=== PATIENT | female | born 1995 | race Caucasian/White ===

== ENCOUNTER 2019-02-04 15:22 | Emergency (ER) | payer OTHER ==
[2019-02-04 16:14] VITALS: BP 104/72
--- NOTE | 2019-02-04 16:27 | UC ---
Respiratory Complaint HPI - HPI Summary HPI Summary: 24 year old female presents with complaint of persistent cough. States sx started ~1 month ago, worsened over the past week with a harsh dry cough, sinus pressure and congestion. Denies fevers, nausea nor vomiting. Has been using otc cold medication without relief. - History of Current Complaint Chief Complaint: UCRespiratory Stated Complaint: COUGH Time Seen by Provider: 02/04/19 16:26 Hx Obtained From: Patient Hx Last Menstrual Period: 01/19/19 Onset/Duration: Lasting Weeks Pain Intensity: 3 Character: Cough: Nonproductive Associated Signs And Symptoms: Positive: URI, Nasal Congestion, Hoarseness, Sinus Discomfort. Negative: Fever, Chills, Pleuritic Chest Pain, Wheezing - Allergies/Home Medications Allergies/Adverse Reactions: Allergies Allergy/AdvReac Type Severity Reaction Status Date / Time amoxicillin Allergy Altered Verified 02/04/19 16:06 Mental Status Home Medications: Home Medications Allergy Med 1 tab DAILY 02/04/19 [History Confirmed 02/04/19] Omeprazole 20 mg PO QAM 02/04/19 [History Confirmed 02/04/19] raNITIdine HCl [Ranitidine HCl] 1 cap QPM 02/04/19 [History Confirmed 02/04/19] PMH/Surg Hx/FS Hx/Imm Hx Previously Healthy: Yes - Surgical History Surgical History: Yes Surgery Procedure, Year, and Place: Orthoscopic bilat knee. Esophageal dilation w/ polyp removal - Family History Known Family History: Positive: Non-Contributory - Social History Alcohol Use: None Substance Use Type: None Smoking Status (MU): Former Smoker Have You Smoked in the Last Year: No Review of Systems All Other Systems Reviewed And Are Negative: Yes Constitutional: Positive: Negative Skin: Positive: Negative Eyes: Positive: Negative ENT: Positive: Sore Throat, Nasal Discharge, Sinus Congestion, Sinus Pain/ Tenderness Respiratory: Positive: Cough. Negative: Shortness Of Breath Cardiovascular: Positive: Negative Gastrointestinal: Positive: Negative Genitourinary: Positive: Negative - LMP 01/19/19, denies chance of . Motor: Positive: Negative Neurovascular: Positive: Negative Musculoskeletal: Positive: Negative Neurological: Positive: Negative Psychological: Positive: Negative Is Patient Immunocompromised?: No Physical Exam Triage Information Reviewed: Yes Appearance: Well-Appearing, No Pain Distress, Well-Nourished Vital Signs: Initial Vital Signs Temp 98.1 F 02/04/19 16:08 Pulse 53 02/04/19 16:08 Resp 16 02/04/19 16:08 BP 104/72 02/04/19 16:08 Pulse Ox 100 02/04/19 16:08 ENT: Positive: Pharyngeal erythema - petechii soft palate., Nasal congestion, Nasal drainage, TMs normal, Hoarse voice, Sinus tenderness, Uvula midline. Negative: Tonsillar swelling, Tonsillar exudate Neck: Positive: Supple, Nontender, No Lymphadenopathy Respiratory: Positive: Lungs clear, Normal breath sounds, No respiratory distress. Negative: Crackles, Rhonchi, Wheezing Cardiovascular: Positive: RRR, No Murmur Abdomen Description: Positive: Nontender, Soft Musculoskeletal Exam: Normal Neurological Exam: Normal Psychological Exam: Normal Skin Exam: Normal Respiratory Course/Dx - Differential Dx/Diagnosis Provider Diagnosis: Acute sinusitis Discharge ED - Sign-Out/Discharge Documenting (check all that apply): Patient Departure All imaging exams completed and their final reports reviewed: No Studies - Discharge Plan Condition: Stable Disposition: HOME Prescriptions: DOXYcycline CAP(*) [DOXYcycline 100MG CAP(*)] 100 mg PO BID 10 Days #20 cap Patient Education Materials: Sinusitis (ED) Referrals: No Primary Care Phys,NOPCP [Primary Care Provider] - Additional Instructions: Take all the antibiotics as prescribed. Recommend Mucinex DM over the counter for cough. If your symptoms persist or worsen, follow-up with your primary care physician. - Billing Disposition and Condition Condition: STABLE Disposition: Home
== END 2019-02-04 17:06 | disposition home or self-care (01) ==
LOC: UCCORT 15:22
DX: J01.90 Acute sinusitis, unspecified (principal); R05 Cough; Z87.891 Personal history of nicotine dependence; Z88.0 Allergy status to penicillin
CPT/HCPCS: 99202; G0463

== ENCOUNTER 2019-02-09 17:30 | Emergency (ER) | payer OTHER ==
[2019-02-09 18:00] VITALS: BP 116/71
--- NOTE | 2019-02-09 18:54 | UC ---
Throat Pain/Nasal Raymond HPI - HPI Summary HPI Summary: 24-year-old female comes in with chief complaint of sore throat. Patient's been on doxycycline for 5 days for sinusitis symptoms had been going on for more than 2 weeks. Today she noticed her throat was more sore than before. She had a headache before starting the doxycycline which has improved. Throats Exie feeling worse and she feels like it's swollen. She looked in the back of her throat and noticed ecchymosis at the base of the uvula. She still able swallow. No difficulty breathing. No recent fevers. Patient feels like her voice is different in the last 1 day than normal. - History of Current Complaint Chief Complaint: UCGeneralIllness Stated Complaint: SORE THROAT Time Seen by Provider: 02/09/19 18:11 Hx Last Menstrual Period: 01/18/19 Pain Intensity: 5 - Allergies/Home Medications Allergies/Adverse Reactions: Allergies Allergy/AdvReac Type Severity Reaction Status Date / Time amoxicillin Allergy Altered Verified 02/09/19 18:00 Mental Status Home Medications: Home Medications LevoCETirizine TAB (NF) [Xyzal TAB (NF)] 5 mg PO DAILY 02/09/19 [History Confirmed 02/09/19] PMH/Surg Hx/FS Hx/Imm Hx Previously Healthy: Yes GI/ History: Gastroesophageal Reflux - Surgical History Surgical History: Yes Surgery Procedure, Year, and Place: Orthoscopic bilat knee. Esophageal dilation w/ polyp removal - Family History Known Family History: Positive: Non-Contributory - Social History Alcohol Use: None Substance Use Type: None Smoking Status (MU): Former Smoker Have You Smoked in the Last Year: No Review of Systems All Other Systems Reviewed And Are Negative: Yes Constitutional: Positive: Other - SEE HPI Skin: Positive: Negative Eyes: Positive: Negative ENT: Positive: Sore Throat, Other - SEE HPI Respiratory: Positive: Negative Cardiovascular: Positive: Negative Gastrointestinal: Positive: Negative Motor: Positive: Negative Neurovascular: Positive: Negative Musculoskeletal: Positive: Negative Neurological: Positive: Negative Psychological: Positive: Negative Is Patient Immunocompromised?: No Physical Exam Triage Information Reviewed: Yes Appearance: Well-Appearing, No Pain Distress, Well-Nourished Vital Signs: Initial Vital Signs Temp 97.9 F 02/09/19 17:57 Pulse 54 02/09/19 17:57 Resp 16 02/09/19 17:57 BP 116/71 02/09/19 17:57 Pulse Ox 100 02/09/19 17:57 Vital Signs Reviewed: Yes Eye Exam: Normal Eyes: Positive: Conjunctiva Clear ENT: Positive: Pharyngeal erythema - There is a 1 cm diameter area of ecchymosis at the base of the uvula. The uvula itself the posterior pharynx is not obviously swollen on my exam. It is symmetric, Uvula midline Neck: Positive: Supple Respiratory: Positive: Lungs clear, Normal breath sounds, No respiratory distress Cardiovascular: Positive: RRR Musculoskeletal: Positive: Strength Intact, ROM Intact Neurological: Positive: Alert, Muscle Tone Normal Psychological: Positive: Age Appropriate Behavior Skin Exam: Normal Throat Pain/Nasal Course/Dx - Course Course Of Treatment: With the area of ecchymosis at the base of the uvula and the patient feeling that her throat is swollen and with the voice change there is a possibility of spreading infection or persistent infection and the pharynx. There is a possibility that the doxycycline is not adequately covering the bacteria involved. Patient had an allergic reaction to amoxicillin which she reports was her not feeling well but denies any hives or difficulty breathing while on the amoxicillin. Switch the patient over to Omnicef 300 mg by mouth twice a day for continued broad coverage. Also 2 days of prednisone 40 mg to help decrease any swelling. Let the patient know that if anything got worse any difficulty with airway breathing or eating she should go to the emergency department. - Differential Dx/Diagnosis Provider Diagnosis: Pharyngitis Discharge ED - Sign-Out/Discharge Documenting (check all that apply): Patient Departure All imaging exams completed and their final reports reviewed: No Studies - Discharge Plan Condition: Stable Disposition: HOME Prescriptions: Cefdinir [Cefdinir 300 MG CAP] 300 mg PO BID #20 capsule predniSONE TAB* [Deltasone 20 MG TAB*] 40 mg PO DAILY #4 tab Patient Education Materials: Pharyngitis (ED) Referrals: [facility] [Outside] Additional Instructions: FOLLOW UP WITH YOUR DOCTOR IF NOT COMPLETELY IMPROVED. STOP THE DOXYCYCLINE. START THE OMNICEF (CEFDINIR). GO TO THE EMERGENCY DEPARTMENT IF NOT IMPROVING OR WORSE; DIFFICULTY SWALLOWING OR BREATHING, YOU FEEL ILL OR ANY QUESTIONS OR CONCERNS. - Billing Disposition and Condition Condition: STABLE Disposition: Home
== END 2019-02-09 19:02 | disposition home or self-care (01) ==
LOC: UCCORT 17:30
DX: J02.9 Acute pharyngitis, unspecified (principal); R51 Headache; Z88.0 Allergy status to penicillin; Z87.891 Personal history of nicotine dependence
CPT/HCPCS: 87651; 99212; G0463